=== PATIENT | female | born 1950 | race African-American/Black ===

== ENCOUNTER 2017-10-25 19:12 | Inpatient (IN) ==
[2017-10-25] MEDS ORDERED: PANTOPRAZOLE 40 MG VIAL IV STA (20:18)
[2017-10-25] MEDS ORDERED: SODIUM CHLORIDE 0.9% 500 ML IV STA (20:18)
[2017-10-25] MEDS ORDERED: ONDANSETRON 4 MG/2 ML VIAL IV STA (20:18)
[2017-10-25] MEDS ORDERED: KETOROLAC 30 MG/1 ML VIAL IV STA (20:18)
[2017-10-25] MEDS ORDERED: PANTOPRAZOLE 40 MG VIAL IV ONE (20:29)
[2017-10-25] MEDS ORDERED: KETOROLAC 30 MG/1 ML VIAL ONE (20:30)
[2017-10-25] MEDS ORDERED: ONDANSETRON 4 MG/2 ML VIAL ONE (20:30)
[2017-10-25] MEDS ORDERED: LEVOFLOXACIN INJ 750 MG in PREMIX 1 EACH IV STA (20:57)
[2017-10-25] MEDS ORDERED: LEVOFLOXACIN INJ 150 ML IV ONE (21:07)
[2017-10-25 21:27] LABS: Basophils # 0.1 10*3/uL (0.0-0.2); Basophils % 0.5 % (0.0-0.8); Eosinophils # 0.1 10*3/uL (0.0-0.87); Eosinophils % 0.3 % (0.00-10.9); Hemoglobin 14.4 GM/DL (12.0-16.0); Immature Granulocytes % 0.6 %; Lymphocytes # 3.4 10*3/uL (1.4-4.0); Lymphocytes % 22.2 % (21.3-54.2); Mean Corpuscular Hemoglobin 27 PG (27-34); Mean Corpuscular Volume 84.9 FL (87-102); Mean Platelet Volume 9.9 FL (9.6-12.0); Monocytes # 1.9 10*3/uL (0.11-0.8); Monocytes % 12.3 % (1.7-12.7); Neutrophils # 9.9 10*3/uL (1.4-7.4); Neutrophils % 64.1 % (38.7-73.9); Platelet Count 239 T/CUMM (130-400); Red Cell Distribution Width 13.8 % (9.3-17.3); White Blood Count 15.4 T/CUMM (4-12)
[2017-10-25 21:57] LABS: Alanine Aminotransferase 12 U/L (13-56); Albumin 3.4 G/DL (3.4-5.0); Alkaline Phosphatase 93 U/L (45-117); Amylase 54 U/L (25-115); Aspartate Amino Transferase 19 U/L (0-37); Blood Urea Nitrogen 15 MG/DL (7-18); Calcium 9.5 MG/DL (8.5-10.1); Glucose 102 MG/DL (74-106); Osmolality,Calculated 273.8 MOS/KG (273-304); Potassium 4.3 MMOL/L (3.5-5.1); Sodium 137 MMOL/L (136-145); Total Protein 7.9 G/DL (6.4-8.3); Troponin I Only < 0.015 NG/ML (0.00-0.045)
[2017-10-25] MEDS ORDERED: ENOXAPARIN 40 MG/0.4 ML SYRINGE SUBCUT SCH (23:00)
[2017-10-25] MEDS ORDERED: HYDROmorphone 2 MG/1 ML VIAL IV PRN (23:50)
[2017-10-26] MEDS: SODIUM CHLORIDE 0.9% 1,000 ML IV SCH ×3 (00:01→16:39)
[2017-10-26] MEDS: METOPROLOL SUCCINATE XL 50 MG TABLET PO SCH ×3 (00:07→20:50)
[2017-10-26] MEDS: GABAPENTIN 300 MG CAPSULE PO SCH ×3 (00:07→20:50)
[2017-10-26] MEDS: ATORVASTATIN 20 MG TABLET PO SCH ×2 (00:07→20:50)
[2017-10-26] MEDS: cloNIDine 0.1 MG TABLET PO SCH ×3 (00:07→20:50)
[2017-10-26] MEDS: APIXABAN 5 MG TABLET PO SCH ×3 (00:07→20:49)
[2017-10-26 01:43] LABS: Basophils % 0.3 % (0.0-0.8); Eosinophils # 0.1 10*3/uL (0.0-0.87); Eosinophils % 0.5 % (0.00-10.9); Hematocrit 41.2 VOL% (35.7-47.0); Hemoglobin 13.1 GM/DL (12.0-16.0); Immature Granulocytes % 0.9 %; Immature Granulocytes Absolute 0.12 #; Lymphocytes # 2.7 10*3/uL (1.4-4.0); Lymphocytes % 20.3 % (21.3-54.2); Mean Corpuscular HGB Conc 31.8 GM/DL (32-36); Mean Corpuscular Hemoglobin 27 PG (27-34); Mean Corpuscular Volume 85.1 FL (87-102); Mean Platelet Volume 10.5 FL (9.6-12.0); Monocytes % 15.1 % (1.7-12.7); Neutrophils # 8.2 10*3/uL (1.4-7.4); Neutrophils % 62.9 % (38.7-73.9); Platelet Count 225 T/CUMM (130-400); Red Blood Count 4.84 MC/CUMM (3.8-5.5); Red Cell Distribution Width 13.8 % (9.3-17.3); White Blood Count 13.1 T/CUMM (4-12)
[2017-10-26 02:02] LABS: Calcium 9.1 MG/DL (8.5-10.1); Osmolality,Calculated 273.8 MOS/KG (273-304); Potassium 4.4 MMOL/L (3.5-5.1)
[2017-10-26 04:08] LABS: Lactic Acid 1.1 MMOL/L (0.4-2.0)
[2017-10-26] MEDS: ASPIRIN EC 81 MG TABLET PO SCH (11:03)
[2017-10-26] MEDS: ESCITALOPRAM 10 MG TABLET PO SCH (11:04)
[2017-10-26] MEDS: FAMOTIDINE 20 MG TABLET PO SCH (11:05)
[2017-10-26] MEDS: LISINOPRIL 20 MG TABLET PO SCH (11:05)
[2017-10-26 14:42] LABS: Apearance,Urine CLOUDY (Clear); Bacteria,Urine Occasional /HPF (Few); Bilirubin,Urine Negative (Negative); Blood, Urine Moderate mg/dL (Negative); Glucose,Urine (UA) Negative (Negative); Ketones,Urine Negative (Negative); Nitrite,Urine Negative (Negative); Protein,Urine Negative; RBC,Urine 8 /HPF (0-4); Urine Color Yellow (Yellow); Urine Specific Gravity 1.016 (1.001-1.035); Urine Urobilinogen < 2.0 EU/DL (0.2-1.0); WBC,Urine 1179 /HPF (0-6)
[2017-10-26] MEDS ORDERED: LEVOFLOXACIN INJ 500 MG in PREMIX 1 EACH IV SCH (21:00)
[2017-10-27] MEDS: SODIUM CHLORIDE 0.9% 1,000 ML IV SCH ×3 (01:26→20:30)
[2017-10-27 08:52] LABS: Basophils # 0.1 10*3/uL (0.0-0.2); Basophils % 0.3 % (0.0-0.8); Eosinophils # 0.1 10*3/uL (0.0-0.87); Eosinophils % 0.3 % (0.00-10.9); Hematocrit 39.4 VOL% (35.7-47.0); Hemoglobin 12.7 GM/DL (12.0-16.0); Immature Granulocytes % 0.6 %; Immature Granulocytes Absolute 0.12 #; Lymphocytes # 2.2 10*3/uL (1.4-4.0); Lymphocytes % 11.8 % (21.3-54.2); Mean Corpuscular HGB Conc 32.2 GM/DL (32-36); Mean Corpuscular Hemoglobin 27 PG (27-34); Mean Corpuscular Volume 84.7 FL (87-102); Mean Platelet Volume 10.8 FL (9.6-12.0); Monocytes % 10.5 % (1.7-12.7); Neutrophils # 14.5 10*3/uL (1.4-7.4); Neutrophils % 76.5 % (38.7-73.9); Platelet Count 239 T/CUMM (130-400); Red Blood Count 4.65 MC/CUMM (3.8-5.5)
[2017-10-27 09:35] LABS: Calcium 9.2 MG/DL (8.5-10.1); Osmolality,Calculated 278.5 MOS/KG (273-304); Potassium 4.3 MMOL/L (3.5-5.1)
[2017-10-27] MEDS ORDERED: cefTRIAXone 1,000 MG in SODIUM CHLORIDE 0.9% 100 ML IV SCH (10:30)
[2017-10-27] MEDS ORDERED: cefOXitin 1,000 MG in SYRINGE 1 EACH IV SCH (11:00)
[2017-10-27] MEDS: metroNIDAZOLE INJ 500 MG in PREMIX 1 EACH IV SCH ×2 (11:26→22:15)
[2017-10-27] MEDS: APIXABAN 5 MG TABLET PO SCH (11:35)
[2017-10-27] MEDS: ASPIRIN EC 81 MG TABLET PO SCH (11:35)
[2017-10-27] MEDS: METOPROLOL SUCCINATE XL 50 MG TABLET PO SCH ×2 (11:50→22:19)
[2017-10-27] MEDS: LISINOPRIL 20 MG TABLET PO SCH (11:50)
[2017-10-27] MEDS: FAMOTIDINE 20 MG TABLET PO SCH (11:50)
[2017-10-27] MEDS: cloNIDine 0.1 MG TABLET PO SCH ×2 (11:50→22:18)
[2017-10-27] MEDS: ESCITALOPRAM 10 MG TABLET PO SCH (11:50)
[2017-10-27] MEDS: GABAPENTIN 300 MG CAPSULE PO SCH ×2 (11:50→22:19)
[2017-10-27] MEDS ORDERED: fentaNYL 100 MCG/2 ML VIAL IV ONE (16:13)
[2017-10-27] MEDS ORDERED: MIDAZOLAM 2 MG/2 ML VIAL IV ONE (16:13)
[2017-10-27] MEDS: cefTAZidime 1,000 MG in SYRINGE 1 EACH IV SCH (17:02)
[2017-10-27] MEDS: ACETAMINOPHEN 325 MG TABLET PO PRN (19:18)
[2017-10-27] MEDS: ATORVASTATIN 20 MG TABLET PO SCH (22:18)
[2017-10-28] MEDS: cefTAZidime 1,000 MG in SYRINGE 1 EACH IV SCH ×3 (01:45→17:51)
[2017-10-28] MEDS: metroNIDAZOLE INJ 500 MG in PREMIX 1 EACH IV SCH ×4 (03:55→20:46)
[2017-10-28] MEDS ORDERED: fentaNYL 100 MCG/2 ML VIAL IV ONE (06:00)
[2017-10-28] MEDS ORDERED: MIDAZOLAM 2 MG/2 ML VIAL IV ONE (06:00)
[2017-10-28] MEDS ORDERED: DIAZEPAM 5 MG TABLET PO ONE (06:00)
[2017-10-28] MEDS: SODIUM CHLORIDE 0.9% 1,000 ML IV SCH ×3 (06:39→20:51)
[2017-10-28 06:44] LABS: Basophils # 0.1 10*3/uL (0.0-0.2); Basophils % 0.3 % (0.0-0.8); Eosinophils # 0.1 10*3/uL (0.0-0.87); Eosinophils % 0.4 % (0.00-10.9); Hemoglobin 11.7 GM/DL (12.0-16.0); Immature Granulocytes % 0.8 %; Immature Granulocytes Absolute 0.15 #; Lymphocytes # 2.6 10*3/uL (1.4-4.0); Lymphocytes % 13.7 % (21.3-54.2); Mean Corpuscular HGB Conc 32.5 GM/DL (32-36); Mean Corpuscular Hemoglobin 27 PG (27-34); Mean Corpuscular Volume 83.7 FL (87-102); Mean Platelet Volume 10.5 FL (9.6-12.0); Monocytes # 2.3 10*3/uL (0.11-0.8); Monocytes % 12.1 % (1.7-12.7); Neutrophils # 13.7 10*3/uL (1.4-7.4); Neutrophils % 72.7 % (38.7-73.9); Platelet Count 238 T/CUMM (130-400); Red Cell Distribution Width 13.7 % (9.3-17.3); White Blood Count 18.9 T/CUMM (4-12)
[2017-10-28 07:09] LABS: Calcium 8.6 MG/DL (8.5-10.1); Osmolality,Calculated 276.4 MOS/KG (273-304)
[2017-10-28] MEDS ORDERED: fentaNYL 100 MCG/2 ML VIAL ONE (10:20)
[2017-10-28] MEDS ORDERED: HYDROmorphone 2 MG/1 ML VIAL ONE (10:21)
[2017-10-28] MEDS ORDERED: MIDAZOLAM 2 MG/2 ML VIAL ONE (10:21)
[2017-10-28] MEDS ORDERED: HYDROmorphone 2 MG/1 ML VIAL IV ONE (10:47)
[2017-10-28] MEDS: FAMOTIDINE 20 MG TABLET PO SCH (13:53)
[2017-10-28] MEDS: GABAPENTIN 300 MG CAPSULE PO SCH ×2 (13:54→20:44)
[2017-10-28] MEDS: LISINOPRIL 20 MG TABLET PO SCH (13:54)
[2017-10-28] MEDS: ESCITALOPRAM 10 MG TABLET PO SCH (13:54)
[2017-10-28] MEDS: METOPROLOL SUCCINATE XL 50 MG TABLET PO SCH ×2 (13:55→20:44)
[2017-10-28] MEDS: cloNIDine 0.1 MG TABLET PO SCH ×2 (13:55→20:42)
[2017-10-28] MEDS: ACETAMINOPHEN 325 MG TABLET PO PRN (20:42)
[2017-10-28] MEDS: ATORVASTATIN 20 MG TABLET PO SCH (20:44)
[2017-10-29] MEDS: cefTAZidime 1,000 MG in SYRINGE 1 EACH IV SCH ×3 (01:23→18:01)
[2017-10-29] MEDS: SODIUM CHLORIDE 0.9% 1,000 ML IV SCH ×4 (02:56→23:04)
[2017-10-29] MEDS: metroNIDAZOLE INJ 500 MG in PREMIX 1 EACH IV SCH ×4 (02:56→21:05)
[2017-10-29 06:50] LABS: Basophils # 0.1 10*3/uL (0.0-0.2); Basophils % 0.3 % (0.0-0.8); Eosinophils # 0.1 10*3/uL (0.0-0.87); Eosinophils % 0.4 % (0.00-10.9); Hematocrit 34.8 VOL% (35.7-47.0); Hemoglobin 11.2 GM/DL (12.0-16.0); Immature Granulocytes % 0.8 %; Immature Granulocytes Absolute 0.16 #; Lymphocytes # 1.8 10*3/uL (1.4-4.0); Lymphocytes % 9.1 % (21.3-54.2); Mean Corpuscular HGB Conc 32.2 GM/DL (32-36); Mean Corpuscular Hemoglobin 27 PG (27-34); Mean Corpuscular Volume 84.1 FL (87-102); Mean Platelet Volume 10.1 FL (9.6-12.0); Monocytes # 1.8 10*3/uL (0.11-0.8); Monocytes % 9.4 % (1.7-12.7); Neutrophils # 15.7 10*3/uL (1.4-7.4); Platelet Count 212 T/CUMM (130-400); Red Blood Count 4.14 MC/CUMM (3.8-5.5); Red Cell Distribution Width 13.7 % (9.3-17.3); White Blood Count 19.6 T/CUMM (4-12)
[2017-10-29 07:27] LABS: Calcium 8.4 MG/DL (8.5-10.1); Magnesium 1.6 MG/DL (1.8-2.4); Osmolality,Calculated 276.4 MOS/KG (273-304); Potassium 3.3 MMOL/L (3.5-5.1)
[2017-10-29] MEDS: METOPROLOL SUCCINATE XL 50 MG TABLET PO SCH ×2 (11:16→20:31)
[2017-10-29] MEDS: LISINOPRIL 20 MG TABLET PO SCH (11:16)
[2017-10-29] MEDS: cloNIDine 0.1 MG TABLET PO SCH ×2 (11:16→20:31)
[2017-10-29] MEDS: FAMOTIDINE 20 MG TABLET PO SCH (11:17)
[2017-10-29] MEDS: GABAPENTIN 300 MG CAPSULE PO SCH ×2 (11:17→20:30)
[2017-10-29] MEDS: ESCITALOPRAM 10 MG TABLET PO SCH (11:17)
[2017-10-29] MEDS: ACETAMINOPHEN 325 MG TABLET PO PRN ×2 (11:53→20:36)
[2017-10-29] MEDS: ATORVASTATIN 20 MG TABLET PO SCH (20:31)
[2017-10-30] MEDS: cefTAZidime 1,000 MG in SYRINGE 1 EACH IV SCH ×3 (00:50→16:50)
[2017-10-30] MEDS: metroNIDAZOLE INJ 500 MG in PREMIX 1 EACH IV SCH ×4 (02:51→20:48)
[2017-10-30 05:17] LABS: Magnesium 1.5 MG/DL (1.8-2.4); Osmolality,Calculated 280.1 MOS/KG (273-304); Potassium 3.3 MMOL/L (3.5-5.1)
[2017-10-30 06:14] LABS: Basophils # 0.1 10*3/uL (0.0-0.2); Basophils % 0.3 % (0.0-0.8); Eosinophils # 0.1 10*3/uL (0.0-0.87); Eosinophils % 0.7 % (0.00-10.9); Hematocrit 32.6 VOL% (35.7-47.0); Hemoglobin 10.6 GM/DL (12.0-16.0); Immature Granulocytes % 0.6 %; Lymphocytes # 1.9 10*3/uL (1.4-4.0); Lymphocytes % 11.9 % (21.3-54.2); Mean Corpuscular HGB Conc 32.5 GM/DL (32-36); Mean Corpuscular Hemoglobin 27 PG (27-34); Mean Platelet Volume 11.3 FL (9.6-12.0); Monocytes # 1.8 10*3/uL (0.11-0.8); Monocytes % 11.2 % (1.7-12.7); Neutrophils # 12.2 10*3/uL (1.4-7.4); Neutrophils % 75.3 % (38.7-73.9); Platelet Count 230 T/CUMM (130-400); Red Blood Count 3.88 MC/CUMM (3.8-5.5); Red Cell Distribution Width 13.7 % (9.3-17.3); White Blood Count 16.2 T/CUMM (4-12)
[2017-10-30] MEDS: SODIUM CHLORIDE 0.9% 1,000 ML IV SCH ×2 (06:28→16:50)
[2017-10-30] MEDS: ACETAMINOPHEN 325 MG TABLET PO PRN ×2 (07:52→18:14)
[2017-10-30] MEDS: LISINOPRIL 20 MG TABLET PO SCH (08:02)
[2017-10-30] MEDS: FAMOTIDINE 20 MG TABLET PO SCH (08:02)
[2017-10-30] MEDS: GABAPENTIN 300 MG CAPSULE PO SCH ×2 (08:03→20:49)
[2017-10-30] MEDS: ESCITALOPRAM 10 MG TABLET PO SCH (08:03)
[2017-10-30] MEDS: METOPROLOL SUCCINATE XL 50 MG TABLET PO SCH ×2 (08:03→20:49)
[2017-10-30] MEDS: cloNIDine 0.1 MG TABLET PO SCH ×2 (08:03→20:49)
[2017-10-30] MEDS: ATORVASTATIN 20 MG TABLET PO SCH (20:49)
[2017-10-31] MEDS: ACETAMINOPHEN 325 MG TABLET PO PRN ×3 (00:01→22:02)
[2017-10-31] MEDS: cefTAZidime 1,000 MG in SYRINGE 1 EACH IV SCH ×3 (01:27→17:47)
[2017-10-31] MEDS: SODIUM CHLORIDE 0.9% 1,000 ML IV SCH ×3 (01:27→23:24)
[2017-10-31] MEDS ORDERED: guaiFENesin 200 MG/10 ML UDCUP PO PRN (01:46)
[2017-10-31] MEDS: metroNIDAZOLE INJ 500 MG in PREMIX 1 EACH IV SCH ×4 (06:42→22:04)
[2017-10-31] MEDS: cloNIDine 0.1 MG TABLET PO SCH ×2 (08:47→22:01)
[2017-10-31] MEDS: GABAPENTIN 300 MG CAPSULE PO SCH ×2 (08:47→22:01)
[2017-10-31] MEDS: ESCITALOPRAM 10 MG TABLET PO SCH (08:47)
[2017-10-31] MEDS: METOPROLOL SUCCINATE XL 50 MG TABLET PO SCH ×2 (08:48→22:00)
[2017-10-31] MEDS: LISINOPRIL 20 MG TABLET PO SCH (08:48)
[2017-10-31] MEDS: FAMOTIDINE 20 MG TABLET PO SCH (08:48)
[2017-10-31] MEDS: ATORVASTATIN 20 MG TABLET PO SCH (22:00)
[2017-11-01] MEDS: cefTAZidime 1,000 MG in SYRINGE 1 EACH IV SCH ×2 (01:38→10:29)
[2017-11-01] MEDS: metroNIDAZOLE INJ 500 MG in PREMIX 1 EACH IV SCH ×2 (04:05→08:36)
[2017-11-01] MEDS: cloNIDine 0.1 MG TABLET PO SCH (08:37)
[2017-11-01] MEDS: ESCITALOPRAM 10 MG TABLET PO SCH (08:39)
[2017-11-01] MEDS: GABAPENTIN 300 MG CAPSULE PO SCH (08:39)
[2017-11-01] MEDS: FAMOTIDINE 20 MG TABLET PO SCH (08:40)
[2017-11-01] MEDS: LISINOPRIL 20 MG TABLET PO SCH (08:40)
[2017-11-01] MEDS: METOPROLOL SUCCINATE XL 50 MG TABLET PO SCH (08:40)
[2017-11-01 11:43] VITALS: BP 150/93
[2017-11-01] MEDS: ACETAMINOPHEN 325 MG TABLET PO PRN (11:44)
[2017-11-01] MEDS: SODIUM CHLORIDE 0.9% 1,000 ML IV SCH (14:34)
== END 2017-11-01 14:55 | disposition home or self-care (01) | DRG 872 ==
LOC: EDUNIT# → EDBD → N.ED 19:12 → N.EDINP 19:12 → SUATTDRO 22:39 → N.2E 22:46
PROVIDERS: ADMIT Internal Medicine

== ENCOUNTER 2018-10-06 00:37 | Observation (INO) ==
[2018-10-06] MEDS ORDERED: SODIUM CHLORIDE 0.9% 500 ML IV STA (00:49)
[2018-10-06 01:02] LABS: Basophils # 0.1 10*3/uL (0.0-0.2); Basophils % 0.5 % (0.0-0.8); Eosinophils # 0.2 10*3/uL (0.0-0.87); Eosinophils % 1.3 % (0.00-10.9); Hematocrit 37.1 VOL% (35.7-47.0); Hemoglobin 11.5 GM/DL (12.0-16.0); Immature Granulocytes % 1.3 %; Immature Granulocytes Absolute 0.14 #; Lymphocytes # 1.9 10*3/uL (1.4-4.0); Lymphocytes % 17.3 % (21.3-54.2); Mean Corpuscular Hemoglobin 26 PG (27-34); Mean Corpuscular Volume 82.6 FL (87-102); Mean Platelet Volume 9.5 FL (9.6-12.0); Monocytes # 1.2 10*3/uL (0.11-0.8); Neutrophils # 7.6 10*3/uL (1.4-7.4); Neutrophils % 68.6 % (38.7-73.9); Platelet Count 287 T/CUMM (130-400); Red Blood Count 4.49 MC/CUMM (3.8-5.5); Red Cell Distribution Width 14.5 % (9.3-17.3); White Blood Count 11.1 T/CUMM (4-12)
[2018-10-06 01:21] LABS: Alanine Aminotransferase < 9 U/L (13-56); Albumin 2.8 G/DL (3.4-5.0); Alkaline Phosphatase 105 U/L (45-117); Aspartate Amino Transferase 12 U/L (0-37); Blood Urea Nitrogen 26 MG/DL (7-18); Calcium 9.5 MG/DL (8.5-10.1); Glucose 129 MG/DL (74-106); Potassium 4.7 MMOL/L (3.5-5.1); Sodium 136 MMOL/L (136-145); Total Protein 8.1 G/DL (6.4-8.3)
[2018-10-06 01:36] LABS: Apearance,Urine CLOUDY (Clear); Bacteria,Urine Occasional /HPF (Few); Bilirubin,Urine Negative (Negative); Blood, Urine Moderate mg/dL (Negative); Glucose,Urine (UA) Negative (Negative); Hyaline Casts,Urine 49 /LPF (0-3); Ketones,Urine Negative (Negative); Mucus,Urine Occasional /LPF (Occasional); Nitrite,Urine Negative (Negative); Protein,Urine Negative; RBC,Urine 37 /HPF (0-4); Squamous Epithelial Cell,Urine Few /HPF (0-10); Urine Color Amber (Yellow); Urine Specific Gravity 1.021 (1.001-1.035); WBC,Urine 2 /HPF (0-6)
[2018-10-06] MEDS ORDERED: ONDANSETRON 4 MG/2 ML VIAL IV PRN (02:14)
[2018-10-06] MEDS ORDERED: diphenhydrAMINE CAP 25 MG CAPSULE PO PRN (02:14)
[2018-10-06] MEDS ORDERED: MORPHINE 4 MG/1 ML VIAL IV PRN (02:14)
[2018-10-06] MEDS ORDERED: ZALEPLON 5 MG CAPSULE PO PRN (02:14)
[2018-10-06] MEDS ORDERED: ACETAMINOPHEN 325 MG TABLET PO PRN (02:14)
[2018-10-06] MEDS ORDERED: INFLUENZA VIRUS VACCINE 0.5 ML SYRINGE IM ONE (03:29)
[2018-10-06] MEDS: SODIUM CHLORIDE 0.9% 1,000 ML IV SCH ×3 (03:34→19:26)
[2018-10-06 05:17] LABS: Basophils % 0.4 % (0.0-0.8); Eosinophils # 0.1 10*3/uL (0.0-0.87); Eosinophils % 1.3 % (0.00-10.9); Hematocrit 37.2 VOL% (35.7-47.0); Hemoglobin 11.2 GM/DL (12.0-16.0); Immature Granulocytes Absolute 0.09 #; Lymphocytes # 2.1 10*3/uL (1.4-4.0); Lymphocytes % 22.6 % (21.3-54.2); Mean Corpuscular HGB Conc 30.1 GM/DL (32-36); Mean Corpuscular Hemoglobin 25 PG (27-34); Mean Corpuscular Volume 83.6 FL (87-102); Mean Platelet Volume 9.5 FL (9.6-12.0); Monocytes % 10.2 % (1.7-12.7); Neutrophils % 64.5 % (38.7-73.9); Platelet Count 259 T/CUMM (130-400); Red Blood Count 4.45 MC/CUMM (3.8-5.5); Red Cell Distribution Width 14.4 % (9.3-17.3); White Blood Count 9.4 T/CUMM (4-12)
[2018-10-06 05:54] LABS: Calcium 9.1 MG/DL (8.5-10.1); Osmolality,Calculated 280.5 MOS/KG (273-304); Potassium 4.4 MMOL/L (3.5-5.1)
[2018-10-06] MEDS: PANTOPRAZOLE 40 MG TABLET PO SCH (08:59)
[2018-10-06] MEDS: APIXABAN 5 MG TABLET PO SCH ×2 (15:01→21:42)
[2018-10-06] MEDS: cloNIDine 0.1 MG TABLET PO SCH (21:42)
[2018-10-06] MEDS: METOPROLOL SUCCINATE XL 50 MG TABLET PO SCH (21:42)
[2018-10-06] MEDS: GABAPENTIN 300 MG CAPSULE PO SCH (21:42)
[2018-10-06] MEDS: ATORVASTATIN 10 MG TABLET PO SCH (21:42)
[2018-10-07] MEDS: SODIUM CHLORIDE 0.9% 1,000 ML IV SCH ×3 (03:26→19:30)
[2018-10-07 04:27] LABS: Basophils % 0.4 % (0.0-0.8); Eosinophils # 0.2 10*3/uL (0.0-0.87); Eosinophils % 2.2 % (0.00-10.9); Immature Granulocytes % 0.7 %; Immature Granulocytes Absolute 0.05 #; Lymphocytes % 26.6 % (21.3-54.2); Mean Corpuscular HGB Conc 30.3 GM/DL (32-36); Mean Corpuscular Hemoglobin 25 PG (27-34); Mean Corpuscular Volume 82.7 FL (87-102); Mean Platelet Volume 9.6 FL (9.6-12.0); Neutrophils # 4.2 10*3/uL (1.4-7.4); Neutrophils % 57.1 % (38.7-73.9); Platelet Count 253 T/CUMM (130-400); Red Blood Count 3.99 MC/CUMM (3.8-5.5); Red Cell Distribution Width 14.3 % (9.3-17.3); White Blood Count 7.4 T/CUMM (4-12)
[2018-10-07 04:48] LABS: Calcium 8.7 MG/DL (8.5-10.1); Osmolality,Calculated 280.3 MOS/KG (273-304); Potassium 3.9 MMOL/L (3.5-5.1)
[2018-10-07] MEDS: ESCITALOPRAM 10 MG TABLET PO SCH (08:56)
[2018-10-07] MEDS: METOPROLOL SUCCINATE XL 50 MG TABLET PO SCH ×2 (08:56→22:03)
[2018-10-07] MEDS: cloNIDine 0.1 MG TABLET PO SCH ×2 (08:56→22:03)
[2018-10-07] MEDS: buPROPion XL 150 MG TABLET PO SCH (08:56)
[2018-10-07] MEDS: APIXABAN 5 MG TABLET PO SCH ×2 (08:56→22:03)
[2018-10-07] MEDS: ASPIRIN EC 81 MG TABLET PO SCH (08:56)
[2018-10-07] MEDS: OLMESARTAN 20 MG TABLET PO SCH (08:57)
[2018-10-07] MEDS: GABAPENTIN 300 MG CAPSULE PO SCH ×2 (08:57→22:03)
[2018-10-07] MEDS: PANTOPRAZOLE 40 MG TABLET PO SCH (08:57)
[2018-10-07] MEDS: OMEGA 3 ACID ETHYL ESTERS 1 GM CAPSULE PO SCH (22:03)
[2018-10-07] MEDS: ATORVASTATIN 10 MG TABLET PO SCH (22:04)
[2018-10-08] MEDS: SODIUM CHLORIDE 0.9% 1,000 ML IV SCH ×2 (00:50→14:20)
[2018-10-08 05:32] LABS: Basophils # 0.1 10*3/uL (0.0-0.2); Basophils % 0.7 % (0.0-0.8); Eosinophils # 0.2 10*3/uL (0.0-0.87); Eosinophils % 2.5 % (0.00-10.9); Hematocrit 32.1 VOL% (35.7-47.0); Hemoglobin 9.8 GM/DL (12.0-16.0); Immature Granulocytes % 0.5 %; Immature Granulocytes Absolute 0.04 #; Lymphocytes # 2.1 10*3/uL (1.4-4.0); Lymphocytes % 25.1 % (21.3-54.2); Mean Corpuscular HGB Conc 30.5 GM/DL (32-36); Mean Corpuscular Hemoglobin 25 PG (27-34); Mean Corpuscular Volume 82.5 FL (87-102); Mean Platelet Volume 9.9 FL (9.6-12.0); Monocytes % 11.9 % (1.7-12.7); Neutrophils % 59.3 % (38.7-73.9); Platelet Count 247 T/CUMM (130-400); Red Blood Count 3.89 MC/CUMM (3.8-5.5); Red Cell Distribution Width 14.5 % (9.3-17.3); White Blood Count 8.5 T/CUMM (4-12)
[2018-10-08 05:58] LABS: Risk Ratio 1.91
[2018-10-08 06:00] LABS: % Iron Saturation 10.8 % (18-50)
[2018-10-08 06:06] LABS: Folate 5.9 NG/ML (5.4-24.0); Vitamin B12 273 PG/ML (211-911)
[2018-10-08 06:48] LABS: Sedimentation Rate-Westergren 90 MM/HR (0-30)
[2018-10-08] MEDS: buPROPion XL 150 MG TABLET PO SCH (08:21)
[2018-10-08] MEDS: OLMESARTAN 20 MG TABLET PO SCH (08:21)
[2018-10-08] MEDS: OMEGA 3 ACID ETHYL ESTERS 1 GM CAPSULE PO SCH ×2 (08:22→21:52)
[2018-10-08] MEDS: METOPROLOL SUCCINATE XL 50 MG TABLET PO SCH ×2 (08:22→21:52)
[2018-10-08] MEDS: PANTOPRAZOLE 40 MG TABLET PO SCH (08:22)
[2018-10-08] MEDS: ESCITALOPRAM 10 MG TABLET PO SCH (08:22)
[2018-10-08] MEDS: GABAPENTIN 300 MG CAPSULE PO SCH ×2 (08:22→21:51)
[2018-10-08] MEDS: ASPIRIN EC 81 MG TABLET PO SCH (08:22)
[2018-10-08] MEDS: CHOLECALCIFEROL 1,000 UNIT TABLET PO SCH (08:22)
[2018-10-08] MEDS: APIXABAN 5 MG TABLET PO SCH ×2 (08:22→21:52)
[2018-10-08] MEDS: cloNIDine 0.1 MG TABLET PO SCH ×2 (08:22→21:52)
[2018-10-08] MEDS ORDERED: ERGOCALCIFEROL 50,000 UNIT CAPSULE PO SCH (12:30)
[2018-10-08] MEDS: FOLIC ACID 1 MG TABLET PO SCH (12:48)
[2018-10-08] MEDS: MAGNESIUM CHLORIDE 64 MG TABLET PO SCH (12:48)
[2018-10-08] MEDS: FERROUS SULFATE ER 140 MG TABLET PO SCH (12:48)
[2018-10-08] MEDS: CYANOCOBALAMIN 1000 MCG/1 ML VIAL SUBCUT SCH (12:49)
[2018-10-08] MEDS: ATORVASTATIN 10 MG TABLET PO SCH (21:52)
[2018-10-09 05:56] LABS: Calcium 8.8 MG/DL (8.5-10.1); Osmolality,Calculated 277.5 MOS/KG (273-304); Potassium 4.3 MMOL/L (3.5-5.1)
[2018-10-09] MEDS: APIXABAN 5 MG TABLET PO SCH ×2 (08:18→20:51)
[2018-10-09] MEDS: OMEGA 3 ACID ETHYL ESTERS 1 GM CAPSULE PO SCH ×2 (08:18→20:50)
[2018-10-09] MEDS: MAGNESIUM CHLORIDE 64 MG TABLET PO SCH (08:18)
[2018-10-09] MEDS: FERROUS SULFATE ER 140 MG TABLET PO SCH (08:18)
[2018-10-09] MEDS: ASPIRIN EC 81 MG TABLET PO SCH (08:18)
[2018-10-09] MEDS: GABAPENTIN 300 MG CAPSULE PO SCH ×2 (08:19→20:50)
[2018-10-09] MEDS: ESCITALOPRAM 10 MG TABLET PO SCH (08:19)
[2018-10-09] MEDS: FOLIC ACID 1 MG TABLET PO SCH (08:20)
[2018-10-09] MEDS: buPROPion XL 150 MG TABLET PO SCH (08:20)
[2018-10-09] MEDS: cloNIDine 0.1 MG TABLET PO SCH ×2 (08:20→20:50)
[2018-10-09] MEDS: PANTOPRAZOLE 40 MG TABLET PO SCH (08:20)
[2018-10-09] MEDS: CYANOCOBALAMIN 1000 MCG/1 ML VIAL SUBCUT SCH (08:20)
[2018-10-09] MEDS: METOPROLOL SUCCINATE XL 50 MG TABLET PO SCH ×2 (08:22→20:50)
[2018-10-09 11:51] LABS: Hemoglobin A1 (Alkaline) 97.7 % (96.5-98.5); Hemoglobin A2 (Alkaline) 2.3 % (1.5-3.5)
[2018-10-09] MEDS: OLMESARTAN 20 MG TABLET PO SCH (13:19)
[2018-10-09] MEDS: CHOLECALCIFEROL 1,000 UNIT TABLET PO SCH (13:19)
[2018-10-09] MEDS: ATORVASTATIN 10 MG TABLET PO SCH (20:50)
[2018-10-10 05:17] LABS: Basophils # 0.1 10*3/uL (0.0-0.2); Basophils % 0.8 % (0.0-0.8); Eosinophils # 0.2 10*3/uL (0.0-0.87); Eosinophils % 2.6 % (0.00-10.9); Hematocrit 33.5 VOL% (35.7-47.0); Hemoglobin 10.2 GM/DL (12.0-16.0); Immature Granulocytes % 1.2 %; Immature Granulocytes Absolute 0.09 #; Lymphocytes # 1.8 10*3/uL (1.4-4.0); Lymphocytes % 23.3 % (21.3-54.2); Mean Corpuscular HGB Conc 30.4 GM/DL (32-36); Mean Corpuscular Hemoglobin 25 PG (27-34); Mean Corpuscular Volume 81.7 FL (87-102); Mean Platelet Volume 9.7 FL (9.6-12.0); Monocytes # 0.9 10*3/uL (0.11-0.8); Monocytes % 11.1 % (1.7-12.7); Neutrophils # 4.7 10*3/uL (1.4-7.4); Platelet Count 259 T/CUMM (130-400); Red Cell Distribution Width 14.6 % (9.3-17.3); White Blood Count 7.8 T/CUMM (4-12)
[2018-10-10 05:43] LABS: Calcium 8.7 MG/DL (8.5-10.1); Osmolality,Calculated 276.5 MOS/KG (273-304); Potassium 4.1 MMOL/L (3.5-5.1)
[2018-10-10] MEDS: CHOLECALCIFEROL 1,000 UNIT TABLET PO SCH (08:41)
[2018-10-10] MEDS: ESCITALOPRAM 10 MG TABLET PO SCH (08:42)
[2018-10-10] MEDS: METOPROLOL SUCCINATE XL 50 MG TABLET PO SCH (08:42)
[2018-10-10] MEDS: OMEGA 3 ACID ETHYL ESTERS 1 GM CAPSULE PO SCH (08:42)
[2018-10-10] MEDS: FERROUS SULFATE ER 140 MG TABLET PO SCH (08:42)
[2018-10-10] MEDS: ASPIRIN EC 81 MG TABLET PO SCH (08:42)
[2018-10-10] MEDS: GABAPENTIN 300 MG CAPSULE PO SCH (08:42)
[2018-10-10] MEDS: PANTOPRAZOLE 40 MG TABLET PO SCH (08:42)
[2018-10-10] MEDS: MAGNESIUM CHLORIDE 64 MG TABLET PO SCH (08:42)
[2018-10-10] MEDS: cloNIDine 0.1 MG TABLET PO SCH (08:43)
[2018-10-10] MEDS: buPROPion XL 150 MG TABLET PO SCH (08:43)
[2018-10-10] MEDS: CYANOCOBALAMIN 1000 MCG/1 ML VIAL SUBCUT SCH (08:43)
[2018-10-10] MEDS: FOLIC ACID 1 MG TABLET PO SCH (08:43)
[2018-10-10] MEDS: APIXABAN 5 MG TABLET PO SCH (08:43)
[2018-10-10] MEDS: OLMESARTAN 20 MG TABLET PO SCH (10:11)
[2018-10-10 12:05] VITALS: BP 120/78
== END 2018-10-10 13:20 ==
LOC: EDUNIT# → EDBD → N.ED 00:37 → N.EDINP 00:37 → N.2E 02:46
PROVIDERS: ADMIT Hospitalist; ATTEND Hospitalist

== ENCOUNTER 2019-04-04 18:13 | Observation (INO) ==
[2019-04-04 20:56] LABS: Apearance,Urine CLOUDY (Clear); Bacteria,Urine Moderate /HPF (Few); Bilirubin,Urine Negative (Negative); Blood, Urine Moderate mg/dL (Negative); Glucose,Urine (UA) Negative (Negative); Ketones,Urine Negative (Negative); Nitrite,Urine Negative (Negative); Protein,Urine Negative; RBC,Urine 4 /HPF (0-4); Squamous Epithelial Cell,Urine Occasional /HPF (0-10); Urine Color Yellow (Yellow); Urine Specific Gravity 1.006 (1.001-1.035); Urine Urobilinogen < 2.0 EU/DL (0.2-1.0); WBC,Urine 58 /HPF (0-6)
[2019-04-04 21:11] LABS: Basophils % 0.3 % (0.0-0.8); Eosinophils # 0.1 10*3/uL (0.0-0.87); Eosinophils % 0.3 % (0.00-10.9); Hematocrit 43.4 VOL% (35.7-47.0); Hemoglobin 12.9 GM/DL (12.0-16.0); Immature Granulocytes % 0.8 %; Immature Granulocytes Absolute 0.11 #; Lymphocytes # 3.3 10*3/uL (1.4-4.0); Lymphocytes % 22.7 % (21.3-54.2); Mean Corpuscular HGB Conc 29.7 GM/DL (32-36); Mean Corpuscular Volume 83.8 FL (87-102); Mean Platelet Volume 9.6 FL (9.6-12.0); Monocytes % 10.4 % (1.7-12.7); Neutrophils % 65.5 % (38.7-73.9); Platelet Count 205 T/CUMM (130-400); Red Blood Count 5.18 MC/CUMM (3.8-5.5); Red Cell Distribution Width 15.1 % (9.3-17.3); White Blood Count 14.4 T/CUMM (4-12)
[2019-04-04] MEDS ORDERED: SODIUM CHLORIDE 0.9% 2,000 ML IV STA (21:15)
[2019-04-04] MEDS ORDERED: LEVOFLOXACIN INJ 750 MG in PREMIX 1 EACH IV STA (21:15)
[2019-04-04 21:16] LABS: Alanine Aminotransferase < 9 U/L (13-56); Albumin 3.2 G/DL (3.4-5.0); Alkaline Phosphatase 97 U/L (45-117); Aspartate Amino Transferase 10 U/L (0-37); Blood Urea Nitrogen 18 MG/DL (7-18); Calcium 9.3 MG/DL (8.5-10.1); Glucose 101 MG/DL (74-106); Osmolality,Calculated 269.2 MOS/KG (273-304); Total Protein 7.8 G/DL (6.4-8.3)
[2019-04-04] MEDS ORDERED: BISACODYL 5 MG TABLET PO PRN (23:18)
[2019-04-04] MEDS ORDERED: ONDANSETRON 4 MG/2 ML VIAL IV PRN (23:18)
[2019-04-04] MEDS ORDERED: diphenhydrAMINE CAP 25 MG CAPSULE PO PRN (23:18)
[2019-04-04] MEDS ORDERED: NICOTINE 21 MG/24 HR PATCH TRANSDERM PRN (23:18)
[2019-04-04] MEDS ORDERED: guaiFENesin/DM ER 600-30 MG TABLET PO PRN (23:18)
[2019-04-04] MEDS ORDERED: MORPHINE 4 MG/1 ML VIAL IV PRN (23:18)
[2019-04-05] MEDS ORDERED: cefTRIAXone 1,000 MG in SYRINGE 1 EACH IV SCH (01:00)
[2019-04-05] MEDS: SODIUM CHLORIDE 0.9% 1,000 ML IV SCH ×3 (01:00→21:05)
[2019-04-05 05:13] LABS: Basophils % 0.3 % (0.0-0.8); Eosinophils # 0.1 10*3/uL (0.0-0.87); Eosinophils % 0.6 % (0.00-10.9); Hematocrit 39.3 VOL% (35.7-47.0); Hemoglobin 12.1 GM/DL (12.0-16.0); Immature Granulocytes % 0.4 %; Immature Granulocytes Absolute 0.05 #; Lymphocytes # 2.5 10*3/uL (1.4-4.0); Lymphocytes % 20.6 % (21.3-54.2); Mean Corpuscular HGB Conc 30.8 GM/DL (32-36); Mean Corpuscular Volume 83.3 FL (87-102); Mean Platelet Volume 10.3 FL (9.6-12.0); Monocytes % 12.2 % (1.7-12.7); Neutrophils % 65.9 % (38.7-73.9); Platelet Count 182 T/CUMM (130-400); Red Blood Count 4.72 MC/CUMM (3.8-5.5); Red Cell Distribution Width 15.2 % (9.3-17.3); White Blood Count 11.9 T/CUMM (4-12)
[2019-04-05] MEDS: PANTOPRAZOLE 40 MG TABLET PO SCH (10:08)
[2019-04-05] MEDS: ACETAMINOPHEN 325 MG TABLET PO PRN ×2 (12:09→21:09)
[2019-04-05] MEDS ORDERED: cloNIDine 0.1 MG TABLET PO SCH (21:00)
[2019-04-05] MEDS: GABAPENTIN 300 MG CAPSULE PO SCH (21:01)
[2019-04-05] MEDS: MEMANTINE 10 MG TABLET PO SCH (21:02)
[2019-04-05] MEDS: APIXABAN 5 MG TABLET PO SCH (21:02)
[2019-04-05] MEDS: METOPROLOL SUCCINATE XL 50 MG TABLET PO SCH (21:02)
[2019-04-06] MEDS ORDERED: MAGNESIUM CHLORIDE 64 MG TABLET PO SCH (09:00)
[2019-04-06] MEDS ORDERED: ESCITALOPRAM 10 MG TABLET PO SCH (09:00)
[2019-04-06] MEDS ORDERED: cefTRIAXone 2,000 MG in SYRINGE 1 EACH IV SCH (09:00)
[2019-04-06] MEDS ORDERED: FOLIC ACID 1 MG TABLET PO SCH (09:00)
[2019-04-06] MEDS ORDERED: ASPIRIN EC 81 MG TABLET PO SCH (09:00)
[2019-04-06] MEDS: PANTOPRAZOLE 40 MG TABLET PO SCH (09:19)
[2019-04-06] MEDS: APIXABAN 5 MG TABLET PO SCH (09:19)
[2019-04-06] MEDS: GABAPENTIN 300 MG CAPSULE PO SCH (09:19)
[2019-04-06] MEDS: METOPROLOL SUCCINATE XL 50 MG TABLET PO SCH (09:19)
[2019-04-06] MEDS: MEMANTINE 10 MG TABLET PO SCH (09:19)
[2019-04-06] MEDS: SODIUM CHLORIDE 0.9% 1,000 ML IV SCH (09:20)
[2019-04-06 12:13] VITALS: BP 142/91
[2019-04-06] MEDS ORDERED: NITROFURANTOIN MACRO/MONO 100 MG CAPSULE PO SCH (21:00)
[2019-04-06] MEDS ORDERED: ASCORBIC ACID 500 MG TABLET PO SCH (21:00)
[2019-04-06] MEDS ORDERED: METHENAMINE HIPPURATE 1 GM TABLET PO SCH (21:00)
== END 2019-04-06 14:30 | disposition home or self-care (01) ==
LOC: N.ED 18:13 → N.EDINP 18:13 → N.2E 04-05 00:10
PROVIDERS: ADMIT Hospitalist; ATTEND Hospitalist

== ENCOUNTER 2019-10-11 21:54 | Inpatient (IN) ==
[2019-10-11] MEDS ORDERED: ASPIRIN 325 MG TABLET PO STA (22:02)
[2019-10-11] MEDS ORDERED: NITROGLYCERIN 2% OINT 1 INCH/GM PACK TOP STA (22:02)
[2019-10-11] MEDS ORDERED: MORPHINE 4 MG/1 ML VIAL IV STA (22:02)
[2019-10-11] MEDS ORDERED: methylPREDNISolone SOD SUC 125 MG/2 ML VIAL IV STA (22:02)
[2019-10-11] MEDS ORDERED: ONDANSETRON 4 MG/2 ML VIAL IV STA (22:02)
[2019-10-11] MEDS ORDERED: FUROSEMIDE 100 MG/10 ML VIAL IV STA (22:02)
[2019-10-11] MEDS ORDERED: ALBUTEROL NEB SOLN 5 MG/ML 20 ML/BOTTLE RESP TX SCH (22:30)
[2019-10-11 22:31] LABS: ABG Base Excess -1.3 MMOL/L (-2.5-2.5); ABG HCO3 23.1 MMOL/L (20-26); ABG Oxygen Saturation 85.2 % (95-100); ABG PCO2 43.3 MM HG (35-48); ABG PH 7.358 (7.35-7.45); ABG PO2 51.5 MM HG (80-95); ABG TCO2 21.3 MMOL/L (23-27); Allen Test Positive
[2019-10-11 22:51] LABS: Basophils # 0.1 10*3/uL (0.0-0.2); Basophils % 0.5 % (0.0-0.8); Eosinophils # 0.2 10*3/uL (0.0-0.87); Eosinophils % 1.7 % (0.00-10.9); Immature Granulocytes % 1.3 %; Immature Granulocytes Absolute 0.14 #; Lymphocytes # 3.5 10*3/uL (1.4-4.0); Lymphocytes % 31.2 % (21.3-54.2); Mean Corpuscular HGB Conc 29.6 GM/DL (32-36); Mean Corpuscular Volume 89.3 FL (87-102); Mean Platelet Volume 11.1 FL (9.6-12.0); Monocytes % 7.1 % (1.7-12.7); Neutrophils % 58.2 % (38.7-73.9); Platelet Count 203 T/CUMM (130-400); Red Blood Count 5.06 MC/CUMM (3.8-5.5); Red Cell Distribution Width 15.7 % (9.3-17.3); White Blood Count 11.2 T/CUMM (4-12)
[2019-10-11 23:14] LABS: Hematocrit 44.9 VOL% (35.7-47.0)
[2019-10-11 23:15] LABS: Hemoglobin 13.4 GM/DL (12.0-16.0)
[2019-10-11 23:25] LABS: Albumin 3.3 G/DL (3.4-5.0); Bilirubin,Total 0.4 MG/DL (0.2-1.0); Calcium 8.7 MG/DL (8.5-10.1); Osmolality,Calculated 279.7 MOS/KG (273-304); Total Protein 7.9 G/DL (6.4-8.3)
[2019-10-11] MEDS ORDERED: CALCIUM GLUCONATE 1,000 MG in SODIUM CHLORIDE 0.9% 100 ML IV ONE (23:32)
[2019-10-11 23:52] LABS: PT Patient Result 10.7 SECS (9.6-12.2)
[2019-10-12] MEDS ORDERED: ONDANSETRON 4 MG/2 ML VIAL IV PRN (00:33)
[2019-10-12] MEDS ORDERED: ALBUTEROL 2.5 MG/3 ML NEB RESP TX PRN (00:33)
[2019-10-12] MEDS ORDERED: MORPHINE 4 MG/1 ML VIAL IV PRN (00:33)
[2019-10-12] MEDS ORDERED: ACETAMINOPHEN 325 MG TABLET PO PRN (00:33)
[2019-10-12 00:36] LABS: Apearance,Urine CLEAR (Clear); Bilirubin,Urine Negative (Negative); Blood, Urine Small mg/dL (Negative); Glucose,Urine (UA) Negative (Negative); Hyaline Casts,Urine 1 /LPF (0-3); Ketones,Urine Negative (Negative); Mucus,Urine Occasional /LPF (Occasional); Nitrite,Urine Negative (Negative); Protein,Urine Negative; RBC,Urine 1 /HPF (0-4); Squamous Epithelial Cell,Urine Occasional /HPF (0-10); Urine Color Colorless (Yellow); Urine Specific Gravity 1.004 (1.001-1.035); Urine Urobilinogen < 2.0 EU/DL (0.2-1.0); WBC,Urine <1 /HPF (0-6)
[2019-10-12] MEDS ORDERED: GLUCAGON 1 MG VIAL IM PRN (00:41)
[2019-10-12] MEDS ORDERED: DEXTROSE 50% 25 GM/50 ML VIAL IV PRN (00:41)
[2019-10-12] MEDS ORDERED: SODIUM CHLORIDE 0.9% 100 ML IV ONE (01:33)
[2019-10-12] MEDS: cefTRIAXone 1,000 MG in SYRINGE 1 EACH IV SCH (01:36)
[2019-10-12] MEDS: ALBUTEROL/IPRATROPIUM 3 ML NEB RESP TX SCH ×4 (01:54→20:25)
[2019-10-12] MEDS: INSULIN REGULAR 100 UNIT/ML SUBCUT SCH ×5 (02:16→21:16)
[2019-10-12] MEDS ORDERED: INFLUENZA VIRUS VACCINE 0.5 ML SYRINGE IM ONE (02:16)
[2019-10-12 02:18] LABS: Troponin I 0.411 NG/ML (0.00-0.045)
[2019-10-12] MEDS: POTASSIUM CHLORIDE 20 MEQ TABLET PO PRN ×3 (02:56→09:15)
[2019-10-12 07:14] LABS: Basophils % 0.2 % (0.0-0.8); Hematocrit 43.2 VOL% (35.7-47.0); Hemoglobin 13.1 GM/DL (12.0-16.0); Immature Granulocytes % 0.9 %; Lymphocytes # 1.1 10*3/uL (1.4-4.0); Lymphocytes % 10.4 % (21.3-54.2); Mean Corpuscular HGB Conc 30.3 GM/DL (32-36); Mean Platelet Volume 9.6 FL (9.6-12.0); Monocytes % 1.5 % (1.7-12.7); Platelet Count 237 T/CUMM (130-400); Red Blood Count 4.91 MC/CUMM (3.8-5.5); Red Cell Distribution Width 15.2 % (9.3-17.3); White Blood Count 10.7 T/CUMM (4-12)
[2019-10-12 07:38] LABS: Alanine Aminotransferase 9 U/L (13-56); Albumin 3.1 G/DL (3.4-5.0); Alkaline Phosphatase 124 U/L (45-117); Aspartate Amino Transferase 12 U/L (0-37); Bilirubin,Total < 0.39 MG/DL (0.2-1.0); Blood Urea Nitrogen 16 MG/DL (7-18); Calcium 9.2 MG/DL (8.5-10.1); Estimated Glom Filtration Rate 64 ML/MIN; Glucose 211 MG/DL (74-106); Osmolality,Calculated 283.5 MOS/KG (273-304); Total Protein 7.7 G/DL (6.4-8.3)
[2019-10-12] MEDS: MEMANTINE 10 MG TABLET PO SCH ×2 (09:13→20:40)
[2019-10-12] MEDS: METHENAMINE HIPPURATE 1 GM TABLET PO SCH ×2 (09:13→20:41)
[2019-10-12] MEDS: ATORVASTATIN 20 MG TABLET PO SCH (09:13)
[2019-10-12] MEDS: LOSARTAN 50 MG TABLET PO SCH (09:13)
[2019-10-12] MEDS: ASPIRIN EC 81 MG TABLET PO SCH (09:13)
[2019-10-12] MEDS: ESCITALOPRAM 10 MG TABLET PO SCH (09:14)
[2019-10-12] MEDS: ASCORBIC ACID 500 MG TABLET PO SCH ×2 (09:14→20:40)
[2019-10-12] MEDS: METOPROLOL SUCCINATE XL 50 MG TABLET PO SCH ×2 (09:15→20:41)
[2019-10-12] MEDS: FOLIC ACID 1 MG TABLET PO SCH (09:15)
[2019-10-12] MEDS: PANTOPRAZOLE 40 MG TABLET PO SCH (09:15)
[2019-10-12] MEDS: GABAPENTIN 300 MG CAPSULE PO SCH ×2 (09:15→20:40)
[2019-10-12] MEDS: APIXABAN 5 MG TABLET PO SCH ×2 (09:15→20:41)
[2019-10-12] MEDS: predniSONE 20 MG TABLET PO SCH (09:15)
[2019-10-12] MEDS ORDERED: cloNIDine 0.1 MG TABLET PO SCH (21:00)
[2019-10-12] MEDS ORDERED: DONEPEZIL 10 MG TABLET PO SCH (21:00)
[2019-10-13] MEDS: cefTRIAXone 1,000 MG in SYRINGE 1 EACH IV SCH (00:40)
[2019-10-13] MEDS: ALBUTEROL/IPRATROPIUM 3 ML NEB RESP TX SCH ×2 (02:23→07:13)
[2019-10-13 05:16] LABS: Basophils % 0.1 % (0.0-0.8); Hematocrit 38.2 VOL% (35.7-47.0); Immature Granulocytes % 0.8 %; Immature Granulocytes Absolute 0.16 #; Lymphocytes # 1.9 10*3/uL (1.4-4.0); Lymphocytes % 9.9 % (21.3-54.2); Mean Corpuscular HGB Conc 31.4 GM/DL (32-36); Mean Corpuscular Volume 86.4 FL (87-102); Monocytes % 9.9 % (1.7-12.7); Neutrophils % 79.3 % (38.7-73.9); Platelet Count 242 T/CUMM (130-400); Red Blood Count 4.42 MC/CUMM (3.8-5.5); Red Cell Distribution Width 15.1 % (9.3-17.3); White Blood Count 19.4 T/CUMM (4-12)
[2019-10-13 05:37] LABS: Calcium 9.2 MG/DL (8.5-10.1); Osmolality,Calculated 282.5 MOS/KG (273-304)
[2019-10-13] MEDS: INSULIN REGULAR 100 UNIT/ML SUBCUT SCH ×2 (07:48→12:00)
[2019-10-13] MEDS: ASPIRIN EC 81 MG TABLET PO SCH (09:56)
[2019-10-13] MEDS: METHENAMINE HIPPURATE 1 GM TABLET PO SCH (09:56)
[2019-10-13] MEDS: METOPROLOL SUCCINATE XL 50 MG TABLET PO SCH (09:56)
[2019-10-13] MEDS: FOLIC ACID 1 MG TABLET PO SCH (09:56)
[2019-10-13] MEDS: ASCORBIC ACID 500 MG TABLET PO SCH (09:56)
[2019-10-13] MEDS: MEMANTINE 10 MG TABLET PO SCH (09:56)
[2019-10-13] MEDS: ATORVASTATIN 20 MG TABLET PO SCH (09:56)
[2019-10-13] MEDS: PANTOPRAZOLE 40 MG TABLET PO SCH (09:57)
[2019-10-13] MEDS: GABAPENTIN 300 MG CAPSULE PO SCH (09:57)
[2019-10-13] MEDS: ESCITALOPRAM 10 MG TABLET PO SCH (09:57)
[2019-10-13] MEDS: LOSARTAN 50 MG TABLET PO SCH (09:57)
[2019-10-13] MEDS: predniSONE 20 MG TABLET PO SCH (09:57)
[2019-10-13] MEDS: APIXABAN 5 MG TABLET PO SCH (09:57)
[2019-10-13 12:08] VITALS: BP 141/77
== END 2019-10-13 12:58 | disposition home or self-care (01) | DRG 190 ==
LOC: N.ED 21:54 → N.EDINP 10-12 00:33 → SUATTDRO 10-12 00:33 → N.CC 10-12 01:18 → N.2E 10-12 17:41
PROVIDERS: ADMIT Family Medicine; ATTEND Internal Medicine Geriatric Medicine

== ENCOUNTER 2021-01-18 17:58 | Inpatient (IN) ==
[2021-01-18] MEDS ORDERED: ONDANSETRON 4 MG/2 ML VIAL IV STA (18:26)
[2021-01-18 18:55] LABS: Alanine Aminotransferase < 9 U/L (13-56); Albumin 3.5 G/DL (3.4-5.0); Alkaline Phosphatase 113 U/L (45-117); Aspartate Amino Transferase 19 U/L (0-37); Blood Urea Nitrogen 10 MG/DL (7-18); Calcium 9.5 MG/DL (8.5-10.1); Carbon Dioxide 25 MMOL/L (21-32); Estimated Glom Filtration Rate 64 ML/MIN; Glucose 166 MG/DL (74-106); Osmolality,Calculated 283.3 MOS/KG (273-304); Potassium 4.3 MMOL/L (3.5-5.1); Sodium 141 MMOL/L (136-145); Total Protein 8.2 G/DL (6.4-8.3)
[2021-01-18 19:06] LABS: Basophils # 0.1 10*3/uL (0.0-0.2); Basophils % 0.9 % (0.0-0.8); Eosinophils # 0.3 10*3/uL (0.0-0.87); Eosinophils % 3.5 % (0.00-10.9); Hematocrit 45.5 VOL% (35.7-47.0); Hemoglobin 14.3 GM/DL (12.0-16.0); Immature Granulocytes % 0.7 %; Immature Granulocytes Absolute 0.06 #; Lymphocytes # 1.6 10*3/uL (1.4-4.0); Lymphocytes % 17.2 % (21.3-54.2); Mean Corpuscular HGB Conc 31.4 GM/DL (32-36); Mean Platelet Volume 9.7 FL (9.6-12.0); Monocytes % 10.3 % (1.7-12.7); Neutrophils % 67.4 % (38.7-73.9); Platelet Count 238 T/CUMM (130-400); Red Blood Count 5.23 MC/CUMM (3.8-5.5); Red Cell Distribution Width 15.3 % (9.3-17.3); White Blood Count 9.2 T/CUMM (4-12)
[2021-01-18] MEDS ORDERED: DEXTROSE 50% 25 GM/50 ML VIAL IV PRN (19:32)
[2021-01-18] MEDS ORDERED: GLUCAGON 1 MG VIAL IM PRN (19:32)
[2021-01-18 19:39] LABS: Bilirubin,Urine Negative (Negative); Blood, Urine Small mg/dL (Negative); Glucose,Urine (UA) Negative (Negative); Hyaline Casts,Urine 2 /LPF (0-3); Ketones,Urine Negative (Negative); Mucus,Urine Occasional /LPF (Occasional); Nitrite,Urine Negative (Negative); Protein,Urine Negative; RBC,Urine 2 /HPF (0-4); Renal Epithelial Cells,Urine Occasional /HPF (<1); Squamous Epithelial Cell,Urine Occasional /HPF (0-10); Urine Appearance CLEAR (Clear); Urine Color Straw (Yellow); Urine Specific Gravity 1.005 (1.001-1.035); Urine Urobilinogen < 2.0 EU/DL (0.2-1.0); WBC,Urine <1 /HPF (0-6)
[2021-01-18 19:49] LABS: PT Patient Result 10.7 SECS (9.8-11.9); Partial Thromboplastin Time 26.7 SECS (23.9-33.8)
[2021-01-18 20:36] LABS: Barbiturates Screen,Urine Negative (Negative); Benzodiazepines Screen,Urine Negative (Negative); Cannabinoid Screen,Urine Negative (Negative); Opiate Screen,Urine Positive (Negative); Phencyclidine Screen,Urine Negative (Negative)
[2021-01-18] MEDS ORDERED: SERTRALINE 50 MG TABLET PO SCH (21:00)
[2021-01-18] MEDS: DONEPEZIL 10 MG TABLET PO SCH (22:03)
[2021-01-18] MEDS: MEMANTINE 10 MG TABLET PO SCH (22:04)
[2021-01-18] MEDS: ATORVASTATIN 40 MG TABLET PO SCH (22:04)
[2021-01-18] MEDS: GABAPENTIN 300 MG CAPSULE PO SCH (22:04)
[2021-01-18] MEDS: APIXABAN 5 MG TABLET PO SCH (22:04)
[2021-01-19 07:33] LABS: Calcium 10.6 MG/DL (8.5-10.1); Osmolality,Calculated 279.5 MOS/KG (273-304); Potassium 3.6 MMOL/L (3.5-5.1); Risk Ratio 2.9; Thyroid Stimulating Hormone 0.214 uIU/ml (0.358-3.74); VLDL CHOLESTEROL 16.6 MG/DL
[2021-01-19] MEDS: APIXABAN 5 MG TABLET PO SCH (08:02)
[2021-01-19] MEDS: PANTOPRAZOLE 40 MG TABLET PO SCH (08:02)
[2021-01-19] MEDS: ASPIRIN EC 81 MG TABLET PO SCH (08:02)
[2021-01-19] MEDS: MEMANTINE 10 MG TABLET PO SCH ×2 (08:02→21:31)
[2021-01-19] MEDS ORDERED: FLUoxetine 20 MG CAPSULE PO SCH (09:00)
[2021-01-19] MEDS ORDERED: traZODone 50 MG TABLET PO SCH (09:00)
[2021-01-19 11:32] LABS: Red Cell Distribution Width 15.9 % (9.3-17.3)
[2021-01-19 11:36] LABS: Basophils # 0.1 10*3/uL (0.0-0.2); Basophils % 0.7 % (0.0-0.8); Eosinophils # 0.1 10*3/uL (0.0-0.87); Eosinophils % 0.5 % (0.00-10.9); Hematocrit 53.3 VOL% (35.7-47.0); Immature Granulocytes % 0.7 %; Immature Granulocytes Absolute 0.09 #; Lymphocytes # 1.6 10*3/uL (1.4-4.0); Mean Corpuscular HGB Conc 32.1 GM/DL (32-36); Mean Corpuscular Volume 85.3 FL (87-102); Mean Platelet Volume 9.4 FL (9.6-12.0); Monocytes % 6.7 % (1.7-12.7); Neutrophils % 79.4 % (38.7-73.9); Platelet Count 280 T/CUMM (130-400); Red Blood Count 6.25 MC/CUMM (3.8-5.5)
[2021-01-19 11:37] LABS: White Blood Count 13.5 T/CUMM (4-12)
[2021-01-19 11:38] LABS: Hemoglobin 17.1 GM/DL (12.0-16.0)
[2021-01-19] MEDS ORDERED: ENOXAPARIN 60 MG/0.6 ML SYRINGE SUBCUT SCH (21:00)
[2021-01-19] MEDS: ENOXAPARIN 100 MG/ML SYRINGE SUBCUT SCH (21:28)
[2021-01-19] MEDS: DONEPEZIL 10 MG TABLET PO SCH (21:30)
[2021-01-19] MEDS: ATORVASTATIN 40 MG TABLET PO SCH (21:31)
[2021-01-19] MEDS: GABAPENTIN 300 MG CAPSULE PO SCH (21:31)
[2021-01-20] MEDS ORDERED: LABETALOL 20 MG/4 ML SYRINGE IV ONE (05:18)
[2021-01-20 06:57] LABS: Basophils # 0.1 10*3/uL (0.0-0.2); Basophils % 0.5 % (0.0-0.8); Hematocrit 56.4 VOL% (35.7-47.0); Hemoglobin 18.6 GM/DL (12.0-16.0); Immature Granulocytes % 1.1 %; Immature Granulocytes Absolute 0.19 #; Lymphocytes # 2.4 10*3/uL (1.4-4.0); Lymphocytes % 14.2 % (21.3-54.2); Mean Corpuscular Volume 83.7 FL (87-102); Mean Platelet Volume 10.8 FL (9.6-12.0); Monocytes % 8.8 % (1.7-12.7); Neutrophils % 75.4 % (38.7-73.9); Platelet Count 258 T/CUMM (130-400); Red Blood Count 6.74 MC/CUMM (3.8-5.5); White Blood Count 16.7 T/CUMM (4-12)
[2021-01-20 07:14] LABS: Calcium 11.3 MG/DL (8.5-10.1); Osmolality,Calculated 288.3 MOS/KG (273-304); Potassium 3.8 MMOL/L (3.5-5.1)
[2021-01-20] MEDS: DILTIAZEM INJ 100 MG in SODIUM CHLORIDE 0.9% 100 ML IV SCH (09:12)
[2021-01-20] MEDS: SODIUM CHLORIDE 0.45% 1,000 ML IV SCH ×2 (09:19→13:56)
[2021-01-20] MEDS: PANTOPRAZOLE 40 MG TABLET PO SCH (09:21)
[2021-01-20] MEDS: ASPIRIN EC 81 MG TABLET PO SCH (09:21)
[2021-01-20] MEDS: MEMANTINE 10 MG TABLET PO SCH ×2 (09:21→21:30)
[2021-01-20] MEDS: ENOXAPARIN 100 MG/ML SYRINGE SUBCUT SCH (10:40)
[2021-01-20] MEDS: ASPIRIN 300 MG SUPP RECTAL SCH (13:50)
[2021-01-20] MEDS: PANTOPRAZOLE 40 MG VIAL IV SCH (13:55)
[2021-01-20] MEDS: DONEPEZIL 10 MG TABLET PO SCH (21:30)
[2021-01-20] MEDS: GABAPENTIN 300 MG CAPSULE PO SCH (21:30)
[2021-01-21] MEDS: DILTIAZEM INJ 100 MG in SODIUM CHLORIDE 0.9% 100 ML IV SCH ×2 (02:42→09:16)
[2021-01-21 05:51] LABS: Basophils # 0.1 10*3/uL (0.0-0.2); Basophils % 0.3 % (0.0-0.8); Hematocrit 49.8 VOL% (35.7-47.0); Hemoglobin 15.9 GM/DL (12.0-16.0); Immature Granulocytes % 1.1 %; Immature Granulocytes Absolute 0.22 #; Lymphocytes # 2.5 10*3/uL (1.4-4.0); Lymphocytes % 12.2 % (21.3-54.2); Mean Corpuscular HGB Conc 31.9 GM/DL (32-36); Mean Corpuscular Volume 84.4 FL (87-102); Mean Platelet Volume 10.4 FL (9.6-12.0); Monocytes % 11.4 % (1.7-12.7); NRBC # 0.02 10*3/uL; Platelet Count 276 T/CUMM (130-400); Red Cell Distribution Width 15.2 % (9.3-17.3); White Blood Count 20.7 T/CUMM (4-12)
[2021-01-21 06:25] LABS: Lymphocytes 15 % (20-55); Platelet Estimate Adequate; Segmented Neutrophils 69 % (50-85); Total Cells Counted 100
[2021-01-21 06:27] LABS: Calcium 9.7 MG/DL (8.5-10.1); Osmolality,Calculated 283.7 MOS/KG (273-304); Potassium 3.3 MMOL/L (3.5-5.1)
[2021-01-21] MEDS ORDERED: DIGOXIN 0.5 MG/2 ML AMP IV ONE ×2 (08:06→08:14)
[2021-01-21] MEDS: SODIUM CHLORIDE 0.9% 1,000 ML IV SCH (09:13)
[2021-01-21] MEDS: PANTOPRAZOLE 40 MG VIAL IV SCH (09:16)
[2021-01-21] MEDS: ASPIRIN 300 MG SUPP RECTAL SCH (09:21)
[2021-01-21] MEDS: PIPERACILLIN/TAZOBACTAM 3,375 MG in SODIUM CHLORIDE 0.9% 100 ML IV SCH ×2 (09:21→17:12)
[2021-01-21] MEDS: MEMANTINE 10 MG TABLET PO SCH ×2 (09:22→22:04)
[2021-01-21] MEDS: POTASSIUM CHLORIDE RIDER 10 MEQ in PREMIX 1 EACH IV PRN ×4 (10:05→13:18)
[2021-01-21] MEDS ORDERED: SODIUM PHOSPHATE ENEMA 133 ML BOTTLE RECTAL ONE (10:10)
[2021-01-21] MEDS ORDERED: ACETAMINOPHEN 650 MG SUPP RECTAL PRN (10:14)
[2021-01-21 10:30] LABS: Bacteria,Urine Occasional /HPF (Few); Bilirubin,Urine Negative (Negative); Blood, Urine Moderate mg/dL (Negative); Glucose,Urine (UA) Negative (Negative); Ketones,Urine 5 mg/dL (Negative); Mucus,Urine Occasional /LPF (Occasional); Nitrite,Urine Negative (Negative); Protein,Urine 100 MG/DL; RBC,Urine 3 /HPF (0-4); Squamous Epithelial Cell,Urine Few /HPF (0-10); Urine Appearance Slightly Hazy (Clear); Urine Color Yellow (Yellow); Urine Specific Gravity 1.018 (1.001-1.035); Urine Urobilinogen < 2.0 EU/DL (0.2-1.0); WBC,Urine 4 /HPF (0-6)
[2021-01-21] MEDS: MORPHINE 4 MG/1 ML VIAL IV PRN ×2 (11:07→21:02)
[2021-01-21] MEDS ORDERED: KETOROLAC 30 MG/1 ML VIAL IV ONE (11:14)
[2021-01-21] MEDS: METOPROLOL TARTRATE 5 MG/5 ML VIAL IV SCH ×2 (12:38→17:09)
[2021-01-21] MEDS: ONDANSETRON 4 MG/2 ML VIAL IV PRN (21:02)
[2021-01-21] MEDS: GABAPENTIN 300 MG CAPSULE PO SCH (22:04)
[2021-01-21] MEDS: DONEPEZIL 10 MG TABLET PO SCH (22:04)
[2021-01-22] MEDS: PIPERACILLIN/TAZOBACTAM 3,375 MG in SODIUM CHLORIDE 0.9% 100 ML IV SCH ×4 (02:05→23:56)
[2021-01-22] MEDS: METOPROLOL TARTRATE 5 MG/5 ML VIAL IV SCH ×5 (02:25→23:55)
[2021-01-22] MEDS: ONDANSETRON 4 MG/2 ML VIAL IV PRN (02:39)
[2021-01-22] MEDS: MORPHINE 4 MG/1 ML VIAL IV PRN ×3 (02:39→21:23)
[2021-01-22] MEDS: SODIUM CHLORIDE 0.9% 1,000 ML IV SCH (05:00)
[2021-01-22] MEDS: DILTIAZEM INJ 100 MG in SODIUM CHLORIDE 0.9% 100 ML IV SCH ×2 (05:40→10:08)
[2021-01-22] MEDS ORDERED: ceFAZolin 1,000 MG in SYRINGE 1 EACH IV ONE (06:00)
[2021-01-22 06:47] LABS: Basophils % 0.3 % (0.0-0.8); Eosinophils # 0.1 10*3/uL (0.0-0.87); Eosinophils % 0.3 % (0.00-10.9); Hematocrit 44.6 VOL% (35.7-47.0); Immature Granulocytes % 0.7 %; Immature Granulocytes Absolute 0.11 #; Lymphocytes # 1.9 10*3/uL (1.4-4.0); Lymphocytes % 12.6 % (21.3-54.2); Mean Corpuscular HGB Conc 31.4 GM/DL (32-36); Mean Platelet Volume 10.3 FL (9.6-12.0); Monocytes % 9.9 % (1.7-12.7); NRBC # 0.02 10*3/uL; Neutrophils % 76.2 % (38.7-73.9); Platelet Count 202 T/CUMM (130-400); Red Blood Count 5.07 MC/CUMM (3.8-5.5); Red Cell Distribution Width 15.5 % (9.3-17.3); White Blood Count 15.2 T/CUMM (4-12)
[2021-01-22 07:10] LABS: Calcium 8.7 MG/DL (8.5-10.1); Osmolality,Calculated 289.8 MOS/KG (273-304); Potassium 3.8 MMOL/L (3.5-5.1)
[2021-01-22 07:16] LABS: Band Neutrophils 7 % (0-10); Lymphocytes 17 % (20-55); Macrocytosis 1+; Platelet Estimate Normal; Segmented Neutrophils 69 % (50-85); Total Cells Counted 100
[2021-01-22] MEDS: LACTATED RINGERS 1,000 ML IV SCH (08:00)
[2021-01-22] MEDS ORDERED: LIDOCAINE 2% 5 ML VIAL ONE (08:06)
[2021-01-22] MEDS ORDERED: propofoL 200 MG/20 ML VIAL IV ONE (08:06)
[2021-01-22] MEDS ORDERED: ETOMIDATE 20 MG/10 ML VIAL IV ONE (08:11)
[2021-01-22] MEDS ORDERED: MORPHINE 4 MG/1 ML VIAL IV SCH (10:00)
[2021-01-22] MEDS: ASPIRIN 300 MG SUPP RECTAL SCH (10:33)
[2021-01-22] MEDS ORDERED: POTASSIUM CHLORIDE 20 MEQ PACK PEG ONE (10:38)
[2021-01-22] MEDS: DILTIAZEM 60 MG TABLET PO SCH ×4 (10:50→23:54)
[2021-01-22] MEDS: MEMANTINE 10 MG TABLET PO SCH ×2 (10:50→21:20)
[2021-01-22] MEDS: PANTOPRAZOLE 40 MG VIAL IV SCH (10:51)
[2021-01-22] MEDS ORDERED: KETOROLAC 30 MG/1 ML VIAL IV ONE (11:44)
[2021-01-22] MEDS ORDERED: DIGOXIN 0.5 MG/2 ML AMP IV ONE (13:58)
[2021-01-22] MEDS ORDERED: ATORVASTATIN 40 MG TABLET PEG SCH (21:00)
[2021-01-22] MEDS: DONEPEZIL 10 MG TABLET PO SCH (21:19)
[2021-01-22] MEDS: GABAPENTIN 300 MG CAPSULE PO SCH (21:20)
[2021-01-23] MEDS: SODIUM CHLORIDE 0.9% 1,000 ML IV SCH (00:26)
[2021-01-23] MEDS: MORPHINE 4 MG/1 ML VIAL IV PRN (04:42)
[2021-01-23 05:57] LABS: Basophils # 0.1 10*3/uL (0.0-0.2); Basophils % 0.5 % (0.0-0.8); Eosinophils # 0.1 10*3/uL (0.0-0.87); Eosinophils % 0.8 % (0.00-10.9); Hematocrit 42.9 VOL% (35.7-47.0); Hemoglobin 13.1 GM/DL (12.0-16.0); Immature Granulocytes % 0.6 %; Immature Granulocytes Absolute 0.08 #; Lymphocytes # 1.8 10*3/uL (1.4-4.0); Lymphocytes % 13.7 % (21.3-54.2); Mean Corpuscular HGB Conc 30.5 GM/DL (32-36); Mean Corpuscular Volume 87.7 FL (87-102); Monocytes % 10.5 % (1.7-12.7); Neutrophils % 73.9 % (38.7-73.9); Platelet Count 208 T/CUMM (130-400); Red Blood Count 4.89 MC/CUMM (3.8-5.5); Red Cell Distribution Width 15.2 % (9.3-17.3)
[2021-01-23 06:11] LABS: Calcium 8.9 MG/DL (8.5-10.1); Osmolality,Calculated 289.8 MOS/KG (273-304); Potassium 3.9 MMOL/L (3.5-5.1)
[2021-01-23 06:12] LABS: Calcium 8.9 MG/DL (8.5-10.1); Osmolality,Calculated 289.8 MOS/KG (273-304); Potassium 3.9 MMOL/L (3.5-5.1)
[2021-01-23] MEDS: METOPROLOL TARTRATE 5 MG/5 ML VIAL IV SCH (06:17)
[2021-01-23] MEDS: DILTIAZEM 60 MG TABLET PO SCH ×2 (06:17→13:20)
[2021-01-23 08:25] VITALS: BP 115/68
[2021-01-23] MEDS ORDERED: APIXABAN 5 MG TABLET PEG SCH (09:00)
[2021-01-23] MEDS ORDERED: ASCORBIC ACID 500 MG TABLET PO SCH (09:00)
[2021-01-23] MEDS ORDERED: METOPROLOL TARTRATE 25 MG TABLET PO SCH (09:00)
[2021-01-23] MEDS: MEMANTINE 10 MG TABLET PO SCH (09:14)
[2021-01-23] MEDS: PANTOPRAZOLE 40 MG VIAL IV SCH (09:15)
[2021-01-23] MEDS: PIPERACILLIN/TAZOBACTAM 3,375 MG in SODIUM CHLORIDE 0.9% 100 ML IV SCH (09:23)
[2021-01-23] MEDS: LACTATED RINGERS 1,000 ML IV SCH (13:21)
[2021-01-23] MEDS ORDERED: ATORVASTATIN 40 MG TABLET PO SCH (21:00)
[2021-01-23] MEDS ORDERED: ATORVASTATIN 40 MG TABLET PEG SCH (21:00)
== END 2021-01-23 13:25 | DRG 64 ==
LOC: N.TELEN 17:58 → N.ED 17:58 → N.TELEN 20:57 → SUATTDRO 01-19 11:02
PROVIDERS: ADMIT Emergency Medicine; ATTEND Internal Medicine
PROC: EGDWPEG (ICD-10-PCS; 2021-01-22 06:35)

== ENCOUNTER 2022-02-01 17:25 | Inpatient (IN) ==
[2022-02-01] MEDS ORDERED: PIPERACILLIN/TAZOBACTAM 3,375 MG in SODIUM CHLORIDE 0.9% 100 ML IV STA (20:27)
[2022-02-01] MEDS ORDERED: SODIUM CHLORIDE 0.9% 1,000 ML IV STA (20:27)
[2022-02-01 20:56] LABS: Basophils # 0.1 10*3/uL (0.0-0.2); Basophils % 0.5 % (0.0-0.8); Eosinophils # 0.1 10*3/uL (0.0-0.87); Hematocrit 36.6 VOL% (35.7-47.0); Hemoglobin 11.2 GM/DL (12.0-16.0); Immature Granulocytes % 0.8 %; Immature Granulocytes Absolute 0.08 #; Lymphocytes # 1.8 10*3/uL (1.4-4.0); Lymphocytes % 17.3 % (21.3-54.2); Mean Corpuscular HGB Conc 30.6 GM/DL (32-36); Mean Corpuscular Volume 87.8 FL (87-102); Mean Platelet Volume 10.2 FL (9.6-12.0); Monocytes % 10.8 % (1.7-12.7); Neutrophils % 69.6 % (38.7-73.9); Platelet Count 173 T/CUMM (130-400); Red Blood Count 4.17 MC/CUMM (3.8-5.5); Red Cell Distribution Width 14.4 % (9.3-17.3); White Blood Count 10.5 T/CUMM (4-12)
[2022-02-01 21:27] LABS: INR 1.1; PT Patient Result 12.2 SECS (10.5-12.0); Partial Thromboplastin Time 33.3 SECS (23.8-32.1)
[2022-02-01 21:31] LABS: Alanine Aminotransferase < 9 U/L (13-56); Albumin 2.1 G/DL (3.4-5.0); Alkaline Phosphatase 65 U/L (45-117); Aspartate Amino Transferase 18 U/L (0-37); Blood Urea Nitrogen 12 MG/DL (7-18); Calcium 7.6 MG/DL (8.5-10.1); Carbon Dioxide 23 MMOL/L (21-32); Estimated Glom Filtration Rate 126 ML/MIN; Glucose 78 MG/DL (74-106); Osmolality,Calculated 279.3 MOS/KG (273-304); Potassium 3.6 MMOL/L (3.5-5.1); Sodium 141 MMOL/L (136-145); Total Protein 6.6 G/DL (6.4-8.2)
[2022-02-01] MEDS ORDERED: ACETAMINOPHEN 325 MG TABLET PO PRN (22:46)
[2022-02-01] MEDS ORDERED: ONDANSETRON 4 MG/2 ML VIAL IV PRN (22:46)
[2022-02-01] MEDS ORDERED: GLUCAGON 1 MG VIAL IM PRN (22:46)
[2022-02-01] MEDS ORDERED: hydrALAZINE 20 MG/1 ML VIAL IV PRN (22:46)
[2022-02-01] MEDS ORDERED: DEXTROSE 10% 250 ML BAG IV PRN (22:46)
[2022-02-01] MEDS ORDERED: MORPHINE 4 MG/1 ML VIAL IV PRN (22:46)
[2022-02-02] MEDS: LACTATED RINGERS 1,000 ML IV SCH ×2 (03:18→13:11)
[2022-02-02 03:37] LABS: Basophils # 0.1 10*3/uL (0.0-0.2); Basophils % 0.4 % (0.0-0.8); Eosinophils # 0.1 10*3/uL (0.0-0.87); Hematocrit 38.8 VOL% (35.7-47.0); Immature Granulocytes % 0.8 %; Immature Granulocytes Absolute 0.11 #; Lymphocytes % 15.1 % (21.3-54.2); Mean Corpuscular HGB Conc 30.9 GM/DL (32-36); Mean Corpuscular Volume 86.2 FL (87-102); Mean Platelet Volume 10.6 FL (9.6-12.0); Monocytes % 11.9 % (1.7-12.7); Neutrophils % 70.8 % (38.7-73.9); Platelet Count 210 T/CUMM (130-400); Red Cell Distribution Width 14.1 % (9.3-17.3); White Blood Count 13.5 T/CUMM (4-12)
[2022-02-02 04:00] LABS: Bilirubin,Total 0.8 MG/DL (0.20-1.00); Calcium 8.8 MG/DL (8.5-10.1); Osmolality,Calculated 274.7 MOS/KG (273-304); Potassium 5.4 MMOL/L (3.5-5.1)
[2022-02-02] MEDS: PIPERACILLIN/TAZOBACTAM 3,375 MG in SODIUM CHLORIDE 0.9% 100 ML IV SCH ×3 (05:00→21:00)
[2022-02-02] MEDS: PANTOPRAZOLE 40 MG VIAL IV SCH (08:49)
[2022-02-03] MEDS: PIPERACILLIN/TAZOBACTAM 3,375 MG in SODIUM CHLORIDE 0.9% 100 ML IV SCH ×3 (05:24→21:00)
[2022-02-03 05:42] LABS: Basophils # 0.1 10*3/uL (0.0-0.2); Basophils % 0.5 % (0.0-0.8); Eosinophils # 0.3 10*3/uL (0.0-0.87); Eosinophils % 2.8 % (0.00-10.9); Hemoglobin 11.6 GM/DL (12.0-16.0); Immature Granulocytes % 0.7 %; Immature Granulocytes Absolute 0.07 #; Lymphocytes # 1.8 10*3/uL (1.4-4.0); Lymphocytes % 17.9 % (21.3-54.2); Mean Corpuscular HGB Conc 30.5 GM/DL (32-36); Mean Corpuscular Volume 88.2 FL (87-102); Mean Platelet Volume 11.6 FL (9.6-12.0); Monocytes % 11.6 % (1.7-12.7); Neutrophils % 66.5 % (38.7-73.9); Platelet Count 182 T/CUMM (130-400); Red Blood Count 4.31 MC/CUMM (3.8-5.5); Red Cell Distribution Width 14.2 % (9.3-17.3); White Blood Count 9.8 T/CUMM (4-12)
[2022-02-03 06:08] LABS: Alanine Aminotransferase < 6 U/L (13-56); Albumin 1.9 G/DL (3.4-5.0); Alkaline Phosphatase 72 U/L (45-117); Aspartate Amino Transferase 25 U/L (0-37); Blood Urea Nitrogen 10 MG/DL (7-18); Calcium 9.3 MG/DL (8.5-10.1); Carbon Dioxide 22 MMOL/L (21-32); Estimated Glom Filtration Rate 119 ML/MIN; Glucose 72 MG/DL (74-106); Osmolality,Calculated 270.8 MOS/KG (273-304); Potassium 4.3 MMOL/L (3.5-5.1); Sodium 137 MMOL/L (136-145); Total Protein 6.6 G/DL (6.4-8.2)
[2022-02-03] MEDS: LACTATED RINGERS 1,000 ML IV SCH (06:33)
[2022-02-03] MEDS: PANTOPRAZOLE 40 MG VIAL IV SCH (10:22)
[2022-02-04] MEDS: PIPERACILLIN/TAZOBACTAM 3,375 MG in SODIUM CHLORIDE 0.9% 100 ML IV SCH (05:11)
[2022-02-04 06:26] LABS: Calcium 9.3 MG/DL (8.5-10.1); Osmolality,Calculated 276.5 MOS/KG (273-304); Potassium 3.7 MMOL/L (3.5-5.1)
[2022-02-04 08:24] LABS: Basophils # 0.1 10*3/uL (0.0-0.2); Basophils % 0.6 % (0.0-0.8); Eosinophils # 0.3 10*3/uL (0.0-0.87); Eosinophils % 2.8 % (0.00-10.9); Hematocrit 41.1 VOL% (35.7-47.0); Hemoglobin 12.7 GM/DL (12.0-16.0); Immature Granulocytes % 0.9 %; Immature Granulocytes Absolute 0.08 #; Lymphocytes # 1.8 10*3/uL (1.4-4.0); Lymphocytes % 20.1 % (21.3-54.2); Mean Corpuscular HGB Conc 30.9 GM/DL (32-36); Mean Corpuscular Volume 87.1 FL (87-102); Mean Platelet Volume 11.3 FL (9.6-12.0); Monocytes % 10.5 % (1.7-12.7); Neutrophils % 65.1 % (38.7-73.9); Platelet Count 229 T/CUMM (130-400); Red Blood Count 4.72 MC/CUMM (3.8-5.5); Red Cell Distribution Width 14.1 % (9.3-17.3); White Blood Count 9.1 T/CUMM (4-12)
[2022-02-04] MEDS: PANTOPRAZOLE 40 MG VIAL IV SCH (08:46)
[2022-02-04 11:29] VITALS: BP 118/74
[2022-02-04] MEDS ORDERED: AMOXICILLIN/CLAV ES 600 125 ML/BOTTLE PO SCH (17:00)
== END 2022-02-04 14:38 | DRG 391 ==
LOC: EDUNIT# → N.ED 17:25 → N.EDINP 22:50 → N.3E 02-02 17:30
PROVIDERS: ADMIT Internal Medicine; ATTEND Internal Medicine